=== PATIENT | male | born 1940 | race Caucasian/White ===

== ENCOUNTER 2018-08-08 17:33 | Emergency (ER) | payer BC, MEDICARE ==
[~2018-08-08] VITALS: Ht 185.4 cm; Wt 68.0 kg
--- NOTE | 2018-08-08 17:44 | Emergency Room Report ---
History of Present Illness General Chief Complaint: Left upper extremity weakness Source: Patient, Family Member Present Illness HPI Patient is a 78-year-old male brought in by the family member after acute onset of left sided weakness. Patient reports having increased difficulty moving his left arm. Patient had sudden onset of symptoms approximate 45 minutes prior to arrival. The patient had no prior history of stroke.The patient was noted to have a recent dental procedure which he had an upper maxillary toothache extraction. Allergies: Coded Allergies: No Known Allergies (Unverified , 08/08/18) Patient History Reviewed Nursing Documentation: PMH: Agreed; PSxH: Agreed Review of Systems All Other Systems: limited - by acuity Physical Exam Sp02 EP Interpretation: reviewed, normal General Appearance: normal inspection, well appearing, no apparent distress, alert, GCS 15, thin Head: atraumatic ENT: normal ENT inspection, hearing grossly normal, normal voice Neck: normal inspection, full range of motion, supple, no bony tend Respiratory: normal inspection, lungs clear, normal breath sounds, no respiratory distress, no retraction, no wheezing Cardiovascular #1: regular rate, rhythm, no edema Gastrointestinal: normal inspection, normal bowel sounds, non tender, soft, no guarding, no hernia Genitourinary: no CVA tenderness Musculoskeletal: normal inspection, back normal, normal range of motion Neurologic: alert, oriented x3, responsive, 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 Total critical care time excluding procedures approximately 45 minutes. Medical Decision Making Diagnostic Impression: Primary Impression: Left arm weakness Additional Impression: CVA (cerebral vascular accident) ER Course The patient presented for left sided weakness. The differential diagnosis included was not limited to intracranial hemorrhage, hemorrhagic stroke, myopathy, among others.Because of complexity of patient's case laboratory testing and imaging studies were ordered. The patient was noted to have a acute the focal neurodeficit his left upper extremity. The patient did not have any noticeable facial droop.The patient was initially noted to have a dense left hemiparesis. CT the head read by radiology showed age-related cortical and involutional changes and mild white matter hypodensities which may be related to sequela of chronic small vessel ischemia there is no sinus fluid noted. The patient was given aspirin. Dr. Elena from the [facility] was contacted for transfer for stroke center. The patient was noted to have a rapid improvement in his weakness over time and subsequently noted to be able to lift his left upper extremity against gravity as well as perform fine motor movements.The patient was noted to have a blood sugar in the 90s.The patient was noted to have onset of symptoms while lying prone on the bed for several minutes. At time of transfer patient had good fiscal agent strength in his left upper extremity.The patient was transferred via [facility] ambulance. Labs Test 08/08/18 18:00 White Blood Count 7.0 K/UL (4.8-10.8) Red Blood Count 3.88 M/UL (4.70-6.10) Hemoglobin 11.9 G/DL (14.2-18.0) Hematocrit 35.3 % (42.0-52.0) Mean Corpuscular Volume 91 FL (80-99) Mean Corpuscular Hemoglobin 30.7 PG (27.0-31.0) Mean Corpuscular Hemoglobin Concent 33.7 G/DL (32.0-36.0) Red Cell Distribution Width 11.4 % (11.6-14.8) Platelet Count 235 K/UL (150-450) Mean Platelet Volume 6.6 FL (6.5-10.1) Neutrophils (%) (Auto) 54.8 % (45.0-75.0) Lymphocytes (%) (Auto) 31.7 % (20.0-45.0) Monocytes (%) (Auto) 10.8 % (1.0-10.0) Eosinophils (%) (Auto) 1.7 % (0.0-3.0) Basophils (%) (Auto) 1.1 % (0.0-2.0) Prothrombin Time 10.6 SEC (9.30-11.50) Prothromb Time International Ratio 1.0 (0.9-1.1) Activated Partial Thromboplast Time 26 SEC (23-33) Sodium Level 141 MMOL/L (136-145) Potassium Level 4.4 MMOL/L (3.5-5.1) Chloride Level 106 MMOL/L (98-107) Carbon Dioxide Level 27 MMOL/L (21-32) Anion Gap 8 mmol/L (5-15) Blood Urea Nitrogen 28 mg/dL (7-18) Creatinine 1.5 MG/DL (0.55-1.30) Estimat Glomerular Filtration Rate mL/min (>60) Glucose Level 113 MG/DL (74-106) Calcium Level 9.5 MG/DL (8.5-10.1) Total Bilirubin 0.3 MG/DL (0.2-1.0) Aspartate Amino Transf (AST/SGOT) 23 U/L (15-37) Alanine Aminotransferase (ALT/SGPT) 28 U/L (12-78) Alkaline Phosphatase 70 U/L (46-116) Total Protein 6.6 G/DL (6.4-8.2) Albumin 3.6 G/DL (3.4-5.0) Globulin 3.0 g/dL Albumin/Globulin Ratio 1.2 (1.0-2.7) Triglycerides Level 37 MG/DL (30-150) Cholesterol Level 166 MG/DL (< 200) LDL Cholesterol 80 mg/dL (<100) HDL Cholesterol 83 MG/DL (40-60) Cholesterol/HDL Ratio 2.0 (3.3-4.4) Lipase 298 U/L (73-393) Status: improved Disposition: XFER SHT-TRM HOSP Condition: Serious Eliazar Self MD Aug 08, 2018 17:44
[2018-08-08 17:52] VITALS: BP 166/73
[2018-08-08] MEDS ORDERED: Alteplase 100mg Inj IVP ONE (18:00)
[2018-08-08] MEDS ORDERED: WATER STERILE IV ONE (18:00)
[2018-08-08] MEDS ORDERED: ALTEPLASE IV ONE (18:00)
[2018-08-08] MEDS ORDERED: Aspirin EC 81mg tab ORAL ONE (18:08)
[2018-08-08 18:23] LABS: BASOPHILS % (AUTO) 1.1 % (0.0-2.0); EOSINOPHILS % (AUTO) 1.7 % (0.0-3.0); HEMATOCRIT 35.3 % (42.0-52.0); HEMOGLOBIN 11.9 G/DL (14.2-18.0); LYMPHOCYTES % (AUTO) 31.7 % (20.0-45.0); MEAN CORPUSCULAR VOLUME 91 FL (80-99); MONOCYTES % (AUTO) 10.8 % (1.0-10.0); NEUTROPHILS % (AUTO) 54.8 % (45.0-75.0); PLATELET COUNT 235 K/UL (150-450); RED BLOOD COUNT 3.88 M/UL (4.70-6.10); RED CELL DISTRIBUTION WIDTH 11.4 % (11.6-14.8)
[2018-08-08 18:50] LABS: ANION GAP 8 mmol/L (5-15); BLOOD UREA NITROGEN 28 mg/dL (7-18); CALCIUM 9.5 MG/DL (8.5-10.1); CARBON DIOXIDE 27 MMOL/L (21-32); CHLORIDE 106 MMOL/L (98-107); CREATININE 1.5 MG/DL (0.55-1.30); POTASSIUM 4.4 MMOL/L (3.5-5.1); SODIUM 141 MMOL/L (136-145)
[2018-08-08 18:54] LABS: ALANINE AMINOTRANSFERASE 28 U/L (12-78); ALBUMIN 3.6 G/DL (3.4-5.0); ALBUMIN/GLOBULIN RATIO 1.2 (1.0-2.7); ALKALINE PHOSPHATASE 70 U/L (46-116); ASPARTATE AMINO TRANSFERASE 23 U/L (15-37); BILIRUBIN,TOTAL 0.3 MG/DL (0.2-1.0); CHOLESTEROL 166 MG/DL (< 200); HDL CHOLESTEROL 83 MG/DL (40-60); TRIGLYCERIDES 37 MG/DL (30-150)
[2018-08-08 19:12] VITALS: BP 172/78
[2018-08-08 19:16] VITALS: BP 172/78
[2018-08-08] MEDS ORDERED: Aspirin Baby 81mg ORAL ONE (19:30)
--- NOTE | 2018-08-09 11:00 | Diagnostic Imaging Report ---
Indication: Headache. Weakness dizziness Technique: Contiguous 5 mm thick transaxial imaging of the head obtained in a Siemens Sensation [address] scanner. Soft tissue and bone windows generated. Automatic Exposure Control was utilized. Total Dose length Product (DLP): 1421.[address] Dose Index Volume (CTDIvol): 70.38 mGy Comparison: none Findings: There is mild prominence of the ventricles, basal cisterns, and cerebral sulci consistent with atrophy. Mild, nonspecific, white matter hypoattenuation is noted throughout the brain consistent with chronic small vessel disease. There is no midline shift, edema, acute hemorrhage, mass effect, or abnormal extra-axial fluid collections. Bones and extra osseous soft tissues are unremarkable. The frontal sinuses are unusually prominent. Impression: No acute intracranial bleed, mass effect or edema. Mild atrophy of the brain. Nonspecific white matter hypoattenuation probably due to chronic small vessel disease. Unusually large pneumatized frontal sinuses. [facility] has communicated the preliminary results to the Emergency Department. Their findings are largely concordant with this report. The CT scanner at [facility] is accredited by the [employer] and the scans are performed using dose optimization techniques as appropriate to a performed exam including Automatic Exposure control.
--- NOTE | 2018-08-09 12:22 | Diagnostic Imaging Report ---
Indication: Chest pain Comparison: None A single view chest radiograph was obtained. Findings: Heart size is normal. Aorta is mildly ectatic and calcified. There is biapical pleural calcification and thickening. Some questionable parenchymal opacities also noted at the apex of the right lung nonspecific. Findings may be scarring but please correlate clinically. Bones are osteopenic. IMPRESSION: Biapical pleural thickening and calcification nonspecific in nature but likely postinflammatory. Correlate clinically. Question of some adjacent parenchymal scarring in the right lung apex as well.
== END 2018-08-08 19:16 | disposition short-term general hospital (02) ==
LOC: EMR 17:58
DX: I63.9 Cerebral infarction, unspecified (principal); G81.94 Hemiplegia, unspecified affecting left nondominant side
CPT/HCPCS: 36415; 70450; 71045; 80053; 80061; 83690; 85025; 85610; 85730; 93005; 99291; J2997; A4216